=== PATIENT | male | born 1995 | race Caucasian/White ===

== ENCOUNTER 2016-11-05 19:25 | Observation (INO) | payer BC, OTHER ==
[2016-11-05] MEDS ORDERED: NORMAL SALINE 10 ML SYRINGE FLUSH IVP PRN (19:32)
[2016-11-05] MEDS ORDERED: DIPH,PERTUSS,TET(ADACEL) VAC/PF 0.5 ML (Tdap) IM ONE (19:32)
[2016-11-05] MEDS ORDERED: Sodium Chloride 0.9% 1,000 ML PRIMARY IV ONE (19:32)
[2016-11-05] MEDS ORDERED: KETOROLAC 15 MG/1 ML VIAL IVP ONE (19:32)
--- NOTE | 2016-11-05 19:40 | PDOC ---
Upper Extremity Problem HPI - General Chief Complaint: Upper Extremity Problem/Injury Stated Complaint: LEFT HAND WOUND/SWELLING/PAIN/DRG Date Seen by Provider: 11/05/16 Time Seen by Provider: 19:30 Source: POSITIVE: Patient Exam Limitations: POSITIVE: No limitations Nurse's Notes Reviewed & Considered: Yes - History of Present Illness Initial Comments: The patient is a 21-year-old male who presents to the emergency department with increased pain and swelling to his left hand. 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 He had an open wound over the dorsal aspect of his hand at the base of his middle finger over the MP joint. He states that this is been slightly swollen and tender since then. Over the last 24 hours he has developed increased pain and swelling which has intensified significantly this evening. He also has had some drainage from the wound. He denies fever however he does have a low-grade temperature here. He is unsure when he last had a tetanus shot. - Patient Allergies Allergies/Adverse Reactions: Allergies Allergy/AdvReac Type Severity Reaction Status Date / Time No Known Allergies Allergy Verified 11/05/16 20:00 Past Medical History - heen HEENT History: Denies History, Other (please comment) Additional HEENT History: Tubes in bilat ears as small child Cardiovascular History: Denies History Respiratory History: Denies History Gastrointestinal History: Denies History Genitourinary History: Denies History Endocrine History: Denies History Musculoskeletal History: Other (please comment) Prosthesis or Implant: No Additional Musculoskeletal History: R elbow injury Neurological History: Denies History Blood Disorders: Denies History Psychiatric History: Denies History Male Reproductive History: Denies History Cancer History: Denies History In Past Year Been Physically Harmed or Verbally Threatened: No History of MDRO: No Tobacco Use: Heavy Tobacco Smoker Alcohol Use: None Substance Use Type: None Previous Surgical History: No Significant Family History: No pertinent family hx Past Medical History Reviewed: Reviewed - No Changes ROS - Limitations ROS Limitations: No Limitations Constitution: DENIES: Chills, Fever Cardiovascular: REPORTS: Denies Cardiac Symptoms Respiratory: REPORTS: Denies Resp Symptoms Neurological: REPORTS: Denies Neuro Symptoms Upper Extremity Problem Exam - General Appearance General Appearance: POSITIVE: Alert, Cooperative, No Acute Distress - Upper Extremity Upper Extremity: POSITIVE: Other (Examination the left hand does reveal a small open wound over the MP joint on the dorsum of his hand at the base of the middle finger. There is some surrounding erythema and swelling associated with tenderness, there is some. Drainage from the open wound, some limited range of motion of his fingers and hand secondary to pain) Vascular: POSITIVE: No Vascular Compromise - Skin Skin: POSITIVE: Normal Color, No Rash - Neuro / Psych Peripheral Neuro Exam: POSITIVE: Sensation Normal Upper Ext Problem Progress - Results Reviewed by me Xrays/CTs/US Reviewed by me: Yes Radiology Findings: X-ray of the left hand reveals no obvious fracture or visible foreign body. Lab Results Reviewed: Yes Lab Results:: Laboratory Results 11/05/16 Range/Units 19:37 WBC 21.32 H (4.8-10.8) 10^3/uL RBC 5.33 (4.70-6.10) 10^6/uL Hgb 16.1 (14.0-18.0) g/dL Hct 44.6 (42.0-52.0) % MCV 83.7 (80-90) FL MCH 30.2 (27-31) PG MCHC 36.1 (33-37) g/dL RDW Std Deviation 42.5 (39-50) fL RDW Coeff of Leora 13.8 (11.5-14.5) % Plt Count 245 (140-350) 10*3/uL MPV 9.6 (7.4-12.2) FL Immature Gran % (Auto) 0.2 (0-5) % Neut % (Auto) 79.7 (50-80) % Lymph % (Auto) 12.7 (10-50) % [place] % (Auto) 6.1 (5-15) % Eos % (Auto) 0.8 (0-8) % Baso % (Auto) 0.5 (0-1) % Immature Gran # (Auto) 0.05 10*3/UL Neut # (Auto) 16.97 10*3/UL Lymph # (Auto) 2.70 10*3/uL [place] # (Auto) 1.31 H (0.3-0.8) 10*3/UL Eos # (Auto) 0.18 10*3/UL Baso # (Auto) 0.11 10*3/UL WBC Morphology Comment Normal morphology (NORM) Plt Morphology Comment Normal morphology (NORM) RBC Morph Comment Normal morphology (NORM) Sodium 138 (135-145) meq/L Potassium 3.8 (3.8-5.2) meq/L Chloride 103 (98-112) meq/L Carbon Dioxide 19 L (23-33) meq/L Anion Gap 16 (5-20) BUN 19 (7-22) mg/dL Creatinine 0.9 (0.70-1.50) mg/dL Estimated GFR > 60 (>60 ml/min/1.73m(2)) BUN/Creatinine Ratio 21.11 H (6-20) Glucose 107 (78-110) mg/dL Calculated Osmolality 287.0 (267-292) mOsm/kg Calcium 10.0 (8.7-10.7) mg/dL Total Bilirubin 1.2 (0.3-1.2) mg/dL AST 85 H (21-57) IU/L ALT 58 (21-72) IU/L Alkaline Phosphatase 72 (38-126) IU/L C-Reactive Protein 0.7 (0.0-0.9) mg/dL Total Protein 8.0 (6.1-8.0) g/dL Albumin 4.9 H (3.5-4.8) g/dL Globulin 3.1 (2.50-4.10) g/dL Albumin/Globulin Ratio 1.50 (1.3-2.0) mg/g Serum Alcohol 24 H (0-10) mg/dL - Patient's Progress MDM / ED Course: Blood cultures were drawn with IV start. Patient was given a fluid bolus as well as Toradol 15 mg IV. His white blood cell count is elevated at 21,000. His CRP is normal at 0.7. The patient was discussed with Dr. Krause who is the orthopedic surgeon on-call. He recommended admission for IV antibiotics. He also evaluated the patient here in the emergency department. These findings and recommendations were discussed with the patient and he is in agreement with this plan. Dr. Loyola has agreed to admit the patient. He is started on vancomycin 1 g IV and Ancef 2 g IV. - Consult Counseled: POSITIVE: Patient, RE: Lab Results, RE: Radiology Results, RE: DX, RE : Need for F/U Patient Care Time - Estimated PCT Patient Care Time (In Minutes): 30 Vital Signs - Recent Vital Signs Vital Signs: Vital Signs (Last 8 hours) Temp Pulse Resp BP Pulse Ox 11/05/16 23:40 98.0 F 107 H 20 144/60 98 11/05/16 21:39 98.9 F 91 18 152/88 95 11/05/16 19:30 99.0 F 118 H 16 152/102 96 - VS Reviewed Vital Signs Reviewed: Yes Discharge Clinical Impression: Cellulitis of hand Discharge Disposition: Admit to Observation Condition: Stable
[2016-11-05 19:50] LABS: BASOPHILS # (AUTO) 0.11 10*3/UL; BASOPHILS % (AUTO) 0.5 % (0-1); EOSINOPHILS # (AUTO) 0.18 10*3/UL; EOSINOPHILS % (AUTO) 0.8 % (0-8); HEMATOCRIT 44.6 % (42.0-52.0); HEMOGLOBIN 16.1 g/dL (14.0-18.0); MEAN CORPUSCULAR HEMOGLOBIN 30.2 PG (27-31); MEAN CORPUSCULAR HGB CONC 36.1 g/dL (33-37); MEAN CORPUSCULAR VOLUME 83.7 FL (80-90); MEAN PLATELET VOLUME 9.6 FL (7.4-12.2); MONOCYTES # (AUTO) 1.31 10*3/UL (0.3-0.8); MONOCYTES % (AUTO) 6.1 % (5-15); NEUTROPHILS # (AUTO) 16.97 10*3/UL; NEUTROPHILS % (AUTO) 79.7 % (50-80); RED BLOOD COUNT 5.33 10^6/uL (4.70-6.10)
[2016-11-05 19:51] LABS: PLATELET MORPHOLOGY COMMENT NORMAL MORPHOLOGY (NORM); RBC MORPHOLOGY COMMENT NORMAL MORPHOLOGY (NORM); WBC MORPHOLOGY COMMENT NORMAL MORPHOLOGY (NORM)
[2016-11-05 20:37] LABS: BLOOD UREA NITROGEN 19 mg/dL (7-22); BUN/CREATININE RATIO 21.11 (6-20); EST GLOMERULAR FILTRATION > 60 (>60 ml/min/1.73m(2)); SERUM ALBUMIN 4.9 g/dL (3.5-4.8)
[2016-11-05] MEDS ORDERED: ceFAZolin Inj 2gm (Premix) 2 GM in Dextrose 1 BAG IV ONE (21:15)
[2016-11-05] MEDS ORDERED: fentaNYL Inj 100 MCG/2 ML VIAL IVP PRN (21:37)
[2016-11-05] MEDS ORDERED: ONDANSETRON 4 MG/2 ML VIAL IVP PRN (21:37)
[2016-11-05] MEDS ORDERED: LIDOCAINE W/ SODIUM BICARB 0.5 ML SYR SUBD PRN (21:37)
[2016-11-05] MEDS ORDERED: KETOROLAC 15 MG/1 ML VIAL IVP PRN (21:37)
[2016-11-05] MEDS ORDERED: ceFAZolin Inj 2gm (Premix) 2 GM in Dextrose 1 BAG IV SCH (21:45)
[2016-11-05] MEDS ORDERED: diphenhydrAMINE 50 MG/1 ML VIAL IVP ONE (23:13)
[2016-11-05] MEDS ORDERED: diphenhydrAMINE 50 MG/1 ML VIAL ONE (23:21)
[2016-11-06 04:39] LABS: BASOPHILS # (AUTO) 0.04 10*3/UL; BASOPHILS % (AUTO) 0.3 % (0-1); EOSINOPHILS # (AUTO) 0.37 10*3/UL; HEMATOCRIT 40.8 % (42.0-52.0); HEMOGLOBIN 14.5 g/dL (14.0-18.0); LYMPHOCYTES # (AUTO) 3.76 10*3/uL; MEAN CORPUSCULAR HEMOGLOBIN 29.9 PG (27-31); MEAN CORPUSCULAR HGB CONC 35.5 g/dL (33-37); MEAN CORPUSCULAR VOLUME 84.1 FL (80-90); MEAN PLATELET VOLUME 9.5 FL (7.4-12.2); MONOCYTES % (AUTO) 11.2 % (5-15); NEUTROPHILS # (AUTO) 6.86 10*3/UL; NEUTROPHILS % (AUTO) 55.1 % (50-80); RED BLOOD COUNT 4.85 10^6/uL (4.70-6.10)
[2016-11-06 04:54] LABS: PLATELET MORPHOLOGY COMMENT NORMAL MORPHOLOGY (NORM); RBC MORPHOLOGY COMMENT NORMAL MORPHOLOGY (NORM); WBC MORPHOLOGY COMMENT NORMAL MORPHOLOGY (NORM)
[2016-11-06 04:56] LABS: BLOOD UREA NITROGEN 17 mg/dL (7-22); BUN/CREATININE RATIO 18.88 (6-20); CALCIUM 9.1 mg/dL (8.7-10.7); EST GLOMERULAR FILTRATION > 60 (>60 ml/min/1.73m(2)); SERUM ALBUMIN 3.6 g/dL (3.5-4.8)
--- NOTE | 2016-11-06 07:51 | DI ---
History: Injury to third metacarpophalangeal joint Comparison: None Findings: No fracture No malalignment No destructive/erosive lesions No degenerative changes No soft tissue foreign bodies Impression: Unremarkable plain film study of the hand
--- NOTE | 2016-11-06 07:59 | ORTHO.PROG ---
Last Taken Vital Signs: Vital Signs - Last Taken Temperature 98.0 F 11/06/16 04:39 Pulse Rate 90 11/06/16 04:39 Respiratory Rate 18 11/06/16 04:39 Blood Pressure 141/73 11/06/16 04:39 Pulse Ox 98 11/06/16 04:39 Subjective: Patient feels better this morning, a dictated note was done last PM consultation on the dictation line Objective: Examination shows that he does not really have any significant redness the swelling has come down he has full extension of the digits he can make a fist he has less swelling pain. Patient with good pulses brisk refill. Laboratory Results 11/05/16 11/06/16 Range/Units 19:37 04:35 WBC 21.32 H 12.45 H (4.8-10.8) 10^3/uL RBC 5.33 4.85 (4.70-6.10) 10^6/uL Hgb 16.1 14.5 (14.0-18.0) g/dL Hct 44.6 40.8 L (42.0-52.0) % MCV 83.7 84.1 (80-90) FL MCH 30.2 29.9 (27-31) PG MCHC 36.1 35.5 (33-37) g/dL RDW Std Deviation 42.5 41.8 (39-50) fL RDW Coeff of Leora 13.8 13.8 (11.5-14.5) % Plt Count 245 214 (140-350) 10*3/uL MPV 9.6 9.5 (7.4-12.2) FL Immature Gran % (Auto) 0.2 0.2 (0-5) % Neut % (Auto) 79.7 55.1 (50-80) % Lymph % (Auto) 12.7 30.2 (10-50) % [place] % (Auto) 6.1 11.2 (5-15) % Eos % (Auto) 0.8 3.0 (0-8) % Baso % (Auto) 0.5 0.3 (0-1) % Immature Gran # (Auto) 0.05 0.02 10*3/UL Neut # (Auto) 16.97 6.86 10*3/UL Lymph # (Auto) 2.70 3.76 10*3/uL [place] # (Auto) 1.31 H 1.40 H (0.3-0.8) 10*3/UL Eos # (Auto) 0.18 0.37 10*3/UL Baso # (Auto) 0.11 0.04 10*3/UL WBC Morphology Comment Normal morphology Normal morphology (NORM) Plt Morphology Comment Normal morphology Normal morphology (NORM) RBC Morph Comment Normal morphology Normal morphology (NORM) Sodium 138 136 (135-145) meq/L Potassium 3.8 4.1 (3.8-5.2) meq/L Chloride 103 108 (98-112) meq/L Carbon Dioxide 19 L 20 L (23-33) meq/L Anion Gap 16 8 (5-20) BUN 19 17 (7-22) mg/dL Creatinine 0.9 0.9 (0.70-1.50) mg/dL Estimated GFR > 60 > 60 (>60 ml/min/1.73m(2)) BUN/Creatinine Ratio 21.11 H 18.88 (6-20) Glucose 107 93 (78-110) mg/dL Calculated Osmolality 287.0 283.0 (267-292) mOsm/kg Calcium 10.0 9.1 (8.7-10.7) mg/dL Total Bilirubin 1.2 1.5 H (0.3-1.2) mg/dL AST 85 H 32 (21-57) IU/L ALT 58 44 (21-72) IU/L Alkaline Phosphatase 72 54 (38-126) IU/L C-Reactive Protein 0.7 (0.0-0.9) mg/dL Total Protein 8.0 6.1 (6.1-8.0) g/dL Albumin 4.9 H 3.6 (3.5-4.8) g/dL Globulin 3.1 2.5 (2.50-4.10) g/dL Albumin/Globulin Ratio 1.50 1.40 (1.3-2.0) mg/g Serum Alcohol 24 H (0-10) mg/dL Vital Signs (24 hrs) Temp Pulse Resp BP Pulse Ox 11/06/16 04:39 98.0 F 90 18 141/73 98 11/05/16 23:40 98.0 F 107 H 20 144/60 98 11/05/16 21:39 98.9 F 91 18 152/88 95 08/15/17 19:30 99.0 F 118 H 16 152/102 96 Assessment: Left hand cellulitis plan is had marked improvement overnight his white count is also gone down considerably these been afebrile on examination I don't see any evidence of a clear abscess formation and his motion is markedly improved. He may be a candidate for discharge on oral antibiotics and close follow-up but did discuss recrudescence in need for surgical treatment decompression or IV antibiotics if symptoms persist or return. Plan: Continue IV antibiotics recheck in afternoon possible discharge home on oral antibiotics. He would need close follow-up.
--- NOTE | 2016-11-06 11:19 | PDOC(PROG) ---
Interval History: This very nice 21-year-old gentleman with no past medical history healthy otherwise about 3 weeks ago hit the dorsal part of his left hand with a instrument lens grinder and yesterday hands are again swelling and red with drainage and was seen in the ER Patient is much better today landing the hand is less swollen according to patient nursing and Dr. Krause's note he is able to make a fist but still not squeeze it there is still some redness but no pain. Past medical history none Past surgical history none Social history no alcohol no tobacco Medications none Objective : Data - Labs CBC and BMP: 11/06/16 04:35 11/06/16 04:35 Labs - Last 24 Hours: Laboratory Results 11/06/16 Range/Units 04:35 WBC 12.45 H (4.8-10.8) 10^3/uL RBC 4.85 (4.70-6.10) 10^6/uL Hgb 14.5 (14.0-18.0) g/dL Hct 40.8 L (42.0-52.0) % MCV 84.1 (80-90) FL MCH 29.9 (27-31) PG MCHC 35.5 (33-37) g/dL RDW Std Deviation 41.8 (39-50) fL RDW Coeff of Leora 13.8 (11.5-14.5) % Plt Count 214 (140-350) 10*3/uL MPV 9.5 (7.4-12.2) FL Immature Gran % (Auto) 0.2 (0-5) % Neut % (Auto) 55.1 (50-80) % Lymph % (Auto) 30.2 (10-50) % [place] % (Auto) 11.2 (5-15) % Eos % (Auto) 3.0 (0-8) % Baso % (Auto) 0.3 (0-1) % Immature Gran # (Auto) 0.02 10*3/UL Neut # (Auto) 6.86 10*3/UL Lymph # (Auto) 3.76 10*3/uL [place] # (Auto) 1.40 H (0.3-0.8) 10*3/UL Eos # (Auto) 0.37 10*3/UL Baso # (Auto) 0.04 10*3/UL WBC Morphology Comment Normal morphology (NORM) Plt Morphology Comment Normal morphology (NORM) RBC Morph Comment Normal morphology (NORM) Sodium 136 (135-145) meq/L Potassium 4.1 (3.8-5.2) meq/L Chloride 108 (98-112) meq/L Carbon Dioxide 20 L (23-33) meq/L Anion Gap 8 (5-20) BUN 17 (7-22) mg/dL Creatinine 0.9 (0.70-1.50) mg/dL Estimated GFR > 60 (>60 ml/min/1.73m(2)) BUN/Creatinine Ratio 18.88 (6-20) Glucose 93 (78-110) mg/dL Calculated Osmolality 283.0 (267-292) mOsm/kg Calcium 9.1 (8.7-10.7) mg/dL Total Bilirubin 1.5 H (0.3-1.2) mg/dL AST 32 (21-57) IU/L ALT 44 (21-72) IU/L Alkaline Phosphatase 54 (38-126) IU/L Total Protein 6.1 (6.1-8.0) g/dL Albumin 3.6 (3.5-4.8) g/dL Globulin 2.5 (2.50-4.10) g/dL Albumin/Globulin Ratio 1.40 (1.3-2.0) mg/g Objective : Exam - General General Appearance: Cooperative - Extremities Additional Extremities Exam Details: Left hand swelling redness able to make a fist but not squeeze all the way no drainage Assessment and Plan - Patient Problems (1) Cellulitis of hand Current Visit: Yes Status: Acute Comment: Patient did receive 1 dose of Vanco mcfp developed allergy with rash was given Benadryl was kept on cefazolin seems to tolerate this well white count is improved I recommend the patient to continue getting IV antibiotics today and maybe look at discharge in the morning and maybe cultures come back and less swelling and normalized white count
--- NOTE | 2016-11-06 11:20 | PDOC ---
History and Physical - History of Present Illness History of Present Illness: Please see my soap note for H&P Past Medical History Tobacco Use: Heavy Tobacco Smoker Do you dip or chew tobacco: Yes Substance Use Type: None Medication / Allergies Allergies/Adverse Reactions: Allergies Allergy/AdvReac Type Severity Reaction Status Date / Time vancomycin Allergy FLUSHING Verified 11/06/16 07:00 Exam - Vitals Vital Signs: Vital Signs Temperature 98.2 F Temperature Source Temporal Artery Scan Pulse Rate [Pulse Oximeter] 68 Respiratory Rate 14 Blood Pressure [Left Arm] 122/55 Pulse Ox 97 Oxygen Delivery Method Room Air Height 6 ft 1 in Weight 95.889 kg Results - Labs CBC and BMP: 11/06/16 04:35 11/06/16 04:35 Labs - Last 24 Hours: Laboratory Results 11/06/16 Range/Units 04:35 WBC 12.45 H (4.8-10.8) 10^3/uL RBC 4.85 (4.70-6.10) 10^6/uL Hgb 14.5 (14.0-18.0) g/dL Hct 40.8 L (42.0-52.0) % MCV 84.1 (80-90) FL MCH 29.9 (27-31) PG MCHC 35.5 (33-37) g/dL RDW Std Deviation 41.8 (39-50) fL RDW Coeff of Leora 13.8 (11.5-14.5) % Plt Count 214 (140-350) 10*3/uL MPV 9.5 (7.4-12.2) FL Immature Gran % (Auto) 0.2 (0-5) % Neut % (Auto) 55.1 (50-80) % Lymph % (Auto) 30.2 (10-50) % [place] % (Auto) 11.2 (5-15) % Eos % (Auto) 3.0 (0-8) % Baso % (Auto) 0.3 (0-1) % Immature Gran # (Auto) 0.02 10*3/UL Neut # (Auto) 6.86 10*3/UL Lymph # (Auto) 3.76 10*3/uL [place] # (Auto) 1.40 H (0.3-0.8) 10*3/UL Eos # (Auto) 0.37 10*3/UL Baso # (Auto) 0.04 10*3/UL WBC Morphology Comment Normal morphology (NORM) Plt Morphology Comment Normal morphology (NORM) RBC Morph Comment Normal morphology (NORM) Sodium 136 (135-145) meq/L Potassium 4.1 (3.8-5.2) meq/L Chloride 108 (98-112) meq/L Carbon Dioxide 20 L (23-33) meq/L Anion Gap 8 (5-20) BUN 17 (7-22) mg/dL Creatinine 0.9 (0.70-1.50) mg/dL Estimated GFR > 60 (>60 ml/min/1.73m(2)) BUN/Creatinine Ratio 18.88 (6-20) Glucose 93 (78-110) mg/dL Calculated Osmolality 283.0 (267-292) mOsm/kg Calcium 9.1 (8.7-10.7) mg/dL Total Bilirubin 1.5 H (0.3-1.2) mg/dL AST 32 (21-57) IU/L ALT 44 (21-72) IU/L Alkaline Phosphatase 54 (38-126) IU/L Total Protein 6.1 (6.1-8.0) g/dL Albumin 3.6 (3.5-4.8) g/dL Globulin 2.5 (2.50-4.10) g/dL Albumin/Globulin Ratio 1.40 (1.3-2.0) mg/g Assessment and Plan - Patient Problems (1) Cellulitis of hand Current Visit: Yes Status: Acute
[2016-11-06] MEDS: ceFAZolin Inj 2gm (Premix) 2 GM in Dextrose 1 BAG IV SCH ×2 (12:16→20:01)
[2016-11-06] MEDS: NORMAL SALINE 10 ML SYRINGE FLUSH IVP PRN ×2 (12:18→20:02)
[2016-11-06] MEDS ORDERED: ceFAZolin Inj 2gm (Premix) 2 GM in Dextrose 1 BAG IV SCH (21:45)
[2016-11-07] MEDS: NORMAL SALINE 10 ML SYRINGE FLUSH IVP PRN (04:35)
[2016-11-07] MEDS: ceFAZolin Inj 2gm (Premix) 2 GM in Dextrose 1 BAG IV SCH (04:36)
[2016-11-07 04:53] LABS: BASOPHILS # (AUTO) 0.03 10*3/UL; BASOPHILS % (AUTO) 0.3 % (0-1); EOSINOPHILS # (AUTO) 0.23 10*3/UL; EOSINOPHILS % (AUTO) 2.3 % (0-8); HEMATOCRIT 41.7 % (42.0-52.0); HEMOGLOBIN 14.8 g/dL (14.0-18.0); LYMPHOCYTES # (AUTO) 3.11 10*3/uL; MEAN CORPUSCULAR HEMOGLOBIN 30.2 PG (27-31); MEAN CORPUSCULAR HGB CONC 35.5 g/dL (33-37); MEAN CORPUSCULAR VOLUME 85.1 FL (80-90); MEAN PLATELET VOLUME 9.7 FL (7.4-12.2); NEUTROPHILS # (AUTO) 5.68 10*3/UL
[2016-11-07 04:57] LABS: PLATELET MORPHOLOGY COMMENT NORMAL MORPHOLOGY (NORM); RBC MORPHOLOGY COMMENT NORMAL MORPHOLOGY (NORM); WBC MORPHOLOGY COMMENT NORMAL MORPHOLOGY (NORM)
[2016-11-07 08:22] VITALS: RESP 18; TEMP 97.4
--- NOTE | 2016-11-07 10:26 | DCSUMMARY ---
Hospitalization Summary Hospital Course: Final Discharge Diagnosis: Current Visit Problems Problem Status Priority Diagnosed Code Cellulitis of hand Acute L03.119 Diagnostic Data, Laboratory Data, and Procedures of Signifigance: Laboratory Results 11/05/16 11/06/16 11/07/16 Range/Units 19:37 04:35 04:25 WBC 21.32 H 12.45 H 9.97 (4.8-10.8) 10^3/uL RBC 5.33 4.85 4.90 (4.70-6.10) 10^6/uL Hgb 16.1 14.5 14.8 (14.0-18.0) g/dL Hct 44.6 40.8 L 41.7 L (42.0-52.0) % MCV 83.7 84.1 85.1 (80-90) FL MCH 30.2 29.9 30.2 (27-31) PG MCHC 36.1 35.5 35.5 (33-37) g/dL RDW Std Deviation 42.5 41.8 42.9 (39-50) fL RDW Coeff of Leora 13.8 13.8 13.9 (11.5-14.5) % Plt Count 245 214 207 (140-350) 10*3/uL MPV 9.6 9.5 9.7 (7.4-12.2) FL Immature Gran % (Auto) 0.2 0.2 0.2 (0-5) % Neut % (Auto) 79.7 55.1 57.0 (50-80) % Lymph % (Auto) 12.7 30.2 31.2 (10-50) % [place] % (Auto) 6.1 11.2 9.0 (5-15) % Eos % (Auto) 0.8 3.0 2.3 (0-8) % Baso % (Auto) 0.5 0.3 0.3 (0-1) % Immature Gran # (Auto) 0.05 0.02 0.02 10*3/UL Neut # (Auto) 16.97 6.86 5.68 10*3/UL Lymph # (Auto) 2.70 3.76 3.11 10*3/uL [place] # (Auto) 1.31 H 1.40 H 0.90 H (0.3-0.8) 10*3/UL Eos # (Auto) 0.18 0.37 0.23 10*3/UL Baso # (Auto) 0.11 0.04 0.03 10*3/UL WBC Morphology Comment Normal morphology Normal morphology Normal morphology (NORM) Plt Morphology Comment Normal morphology Normal morphology Normal morphology (NORM) RBC Morph Comment Normal morphology Normal morphology Normal morphology ( NORM) Sodium 138 136 (135-145) meq/L Potassium 3.8 4.1 (3.8-5.2) meq/L Chloride 103 108 (98-112) meq/L Carbon Dioxide 19 L 20 L (23-33) meq/L Anion Gap 16 8 (5-20) BUN 19 17 (7-22) mg/dL Creatinine 0.9 0.9 (0.70-1.50) mg/dL Estimated GFR > 60 > 60 (>60 ml/min/1.73m(2)) BUN/Creatinine Ratio 21.11 H 18.88 (6-20) Glucose 107 93 (78-110) mg/dL Calculated Osmolality 287.0 283.0 (267-292) mOsm/kg Calcium 10.0 9.1 (8.7-10.7) mg/dL Total Bilirubin 1.2 1.5 H (0.3-1.2) mg/dL AST 85 H 32 (21-57) IU/L ALT 58 44 (21-72) IU/L Alkaline Phosphatase 72 54 (38-126) IU/L C-Reactive Protein 0.7 (0.0-0.9) mg/dL Total Protein 8.0 6.1 (6.1-8.0) g/dL Albumin 4.9 H 3.6 (3.5-4.8) g/dL Globulin 3.1 2.5 (2.50-4.10) g/dL Albumin/Globulin Ratio 1.50 1.40 (1.3-2.0) mg/g Serum Alcohol 24 H (0-10) mg/dL Microbiology 11/05/16 19:37 Hand - Left Gram Stain - Final 11/05/16 19:37 Hand - Left Aerobic Culture - Preliminary Staphylococcus Aureus 11/05/16 19:37 Blood Blood Culture - Preliminary NO GROWTH AFTER 24 HOURS 11/05/16 19:37 Blood Blood Culture - Preliminary NO GROWTH AFTER 24 HOURS History and Physical pertinent to Admission: Course of Hospitalization: Is a very nice 21-year-old gentleman who apparently 3 weeks ago had an accident while working and he was grinding something and accidentally put the coffee grinder on the dorsal part of his right not right hand and knuckle 3 weeks later developed swelling and some drainage. Comes in the hospital admitted was given 1 dose of Vanco which she he was allergic to was given some Benadryl with resolution of his redness and allergy was treated with cefazolin 2 g IV every 8 swelling improved dramatically no more drainage orthopedic surgery evaluated the patient and no need for surgery at this time his white count normalized is feeling great and ready for discharge we got his sensitivities back and cultures which grew staph aureus but not MRSA I discussed the case with infectious disease we will be treating him with the 7 more days of Keflex 1000 3 times a day by mouth he will follow-up with orthopnea Friday On the date of discharge, the patient was examined: Gen.: No acute distress, alert, nontoxic Heart: Regular rate and rhythm, no murmurs, clicks, gallops, or rubs Lungs: Clear to auscultation bilaterally, breathing is nonlabored Abdomen/GI: Normal tones on auscultation, soft, nontender, nondistended Musculoskeletal/extremities: No clubbing, cyanosis, or edema and looks great swelling is down no redness Vitals reviewed and are listed below Assessment and Plan: 1. As per discharge assessments above 2. Disposition: Home 3. Condition on discharge, stable and improved. 4. Diet: regular diet 5. Activities: resume normal activities 6. Follow-Up: 1. PCP Dr. Krause 2. 7. Medications at the Time of Discharge: Home Medications Medication Instructions Recorded Confirmed Type Cephalexin [Keflex] 1,000 mg PO Q8H #21 cap 11/07/16 Rx 8. Time, care, counseling and coordination of care for this discharge is greater than 30 minutes. Exam - Vitals Vital Signs: Vital Signs Temperature 97.4 F Temperature Source Temporal Artery Scan Pulse Rate [Apical] 66 Pulse Rate [Pulse Oximeter] 60 Respiratory Rate 18 Blood Pressure [Left Arm] 130/53 Pulse Ox 96 Oxygen Delivery Method Room Air Height 6 ft 1 in Weight 95.889 kg Patient Problems - Patient Problem List (1) Cellulitis of hand Current Visit: Yes Status: Acute
--- NOTE | 2016-11-07 20:56 | ORTHO.PROG ---
Last Taken Vital Signs: Vital Signs - Last Taken Temperature 97.4 F 11/07/16 08:21 Pulse Rate 60 11/07/16 08:21 Respiratory Rate 18 11/07/16 08:21 Blood Pressure 130/53 11/07/16 08:21 Pulse Ox 96 11/07/16 08:21 Subjective: Left hand with decreased swelling today better motion no pain Objective: Examination shows that the swelling is gone down considerably patient with a small area of eschar over the dorsal aspect of carpal phalangeal joint region which is about a millimeter by millimeter and no fluctuance or other changes under the skin he has full extension can make a full fist he has excellent strength no pain against resisted abduction and adduction are intact there is no redness no splint no lymphadenopathy. Laboratory Results 11/07/16 Range/Units 04:25 WBC 9.97 (4.8-10.8) 10^3/uL RBC 4.90 (4.70-6.10) 10^6/uL Hgb 14.8 (14.0-18.0) g/dL Hct 41.7 L (42.0-52.0) % MCV 85.1 (80-90) FL MCH 30.2 (27-31) PG MCHC 35.5 (33-37) g/dL RDW Std Deviation 42.9 (39-50) fL RDW Coeff of Leora 13.9 (11.5-14.5) % Plt Count 207 (140-350) 10*3/uL MPV 9.7 (7.4-12.2) FL Immature Gran % (Auto) 0.2 (0-5) % Neut % (Auto) 57.0 (50-80) % Lymph % (Auto) 31.2 (10-50) % [place] % (Auto) 9.0 (5-15) % Eos % (Auto) 2.3 (0-8) % Baso % (Auto) 0.3 (0-1) % Immature Gran # (Auto) 0.02 10*3/UL Neut # (Auto) 5.68 10*3/UL Lymph # (Auto) 3.11 10*3/uL [place] # (Auto) 0.90 H (0.3-0.8) 10*3/UL Eos # (Auto) 0.23 10*3/UL Baso # (Auto) 0.03 10*3/UL WBC Morphology Comment Normal morphology (NORM) Plt Morphology Comment Normal morphology (NORM) RBC Morph Comment Normal morphology (NORM) Microbiology 11/05/16 19:37 Blood Culture - Preliminary Blood NO GROWTH AFTER 48 HOURS 11/05/16 19:37 Blood Culture - Preliminary Blood NO GROWTH AFTER 48 HOURS 11/05/16 19:37 Gram Stain - Final Hand - Left Aerobic Culture - Preliminary Staphylococcus Aureus Assessment: Cellulitis of left hand markedly improved on IV antibiotics Plan: Patient is going to be discharged home today I don't see any evidence of abscess formation he can follow-up with myself in clinic in approximately 3 days or sooner for problems. Patient was discharged home by the hospitalist on Keflex thousand milligrams 3 times a day have him follow-up sooner for problems. Possible return to work at the beginning of the week.
== END 2016-11-07 11:26 | disposition home or self-care (01) ==
LOC: ER 19:25 → MED/SURG 21:26
PROVIDERS: ADMIT Internal Medicine; ATTEND Internal Medicine
DX: L03.114 Cellulitis of left upper limb (principal); Z72.0 Tobacco use; T79.8XXA Other early complications of trauma, initial encounter; W31.89XA Contact with other specified machinery, initial encounter
CPT/HCPCS: 36415 ×3; 73130; 80053 ×2; 80320; 85025 ×3; 86140; 87040; 87070; 87077 ×7; 87186 ×2; 87205; 90471; 96374; 99284 ×2; J0690 ×3; J1200; J1885; J3370; 90715; J7030; J7050